=== PATIENT | male | born 1985 | race Caucasian/White ===

== ENCOUNTER 2022-12-24 22:17 | Emergency (ER) | payer OTHER ==
[2022-12-24 22:25] VITALS: BP 131/76; PULSE 65; RESP 16; TEMP 98.7; BMI 27.1
[2022-12-24] MEDS ORDERED: TETRACAINE 0.5% OPHTH SOLN 2 ML BOTTLE ONE (22:30)
[2022-12-24] MEDS ORDERED: FLUORESCEIN NA 1 EA STRIP ONE (22:30)
[2022-12-24] MEDS ORDERED: CIPROFLOXACIN HCL 0.3% OPHTH 2.5ML BOTTLE ONE (22:54)
== END 2022-12-24 23:10 | disposition home or self-care (01) ==
LOC: FER 22:17
DX: S05.01XA Injury of conjunctiva and corneal abrasion without foreign body, right eye, initial encounter (principal); H57.11 Ocular pain, right eye; H53.8 Other visual disturbances; W50.0XXA Accidental hit or strike by another person, initial encounter
CPT/HCPCS: 99283-25